=== PATIENT | female | born 1935 | race American Indian/Alaskan Native ===

== ENCOUNTER 2016-07-13 16:45 | Emergency (ER) | payer MEDICARE ==
[2016-07-13 16:57] VITALS: BMI 24.0
[2016-07-13 16:58] VITALS: RESP 20
--- NOTE | 2016-07-13 18:00 | C.PDOC ---
History Of Present Illness 80 y/o female with pain and swelling to right finger x 5 days, getting worse. pt sent to ed by pmd for further evaluation, no fever or chills. pt has hx of gout. Time Seen by Provider: 07/13/16 17:47 Chief Complaint (Nursing): Abnormal Skin Integrity History Per: Patient, Family History/Exam Limitations: no limitations Onset/Duration Of Symptoms: Days (5) Current Symptoms Are (Timing): Worse Location Of Injury: Right: Hand (4th finger) Past Medical History Reviewed: Historical Data, Nursing Documentation, Vital Signs Vital Signs: Last Vital Signs Temp 97.4 F L 07/13/16 16:58 Pulse 61 07/13/16 16:58 Resp 20 07/13/16 16:58 BP 136/65 07/13/16 16:58 Pulse Ox 99 07/13/16 19:53 - Medical History PMH: Arthritis Other PMH: gout Family History: States: Unknown Family Hx - Social History Hx Tobacco Use: No Hx Alcohol Use: No Hx Substance Use: No - Immunization History Hx Tetanus Toxoid Vaccination: No Hx Influenza Vaccination: No Hx Pneumococcal Vaccination: No Review Of Systems Constitutional: Negative for: Fever, Chills Cardiovascular: Negative for: Chest Pain Musculoskeletal: Positive for: Hand Pain Skin: Negative for: Rash Neurological: Negative for: Weakness, Numbness Physical Exam - Physical Exam Appears: Non-toxic, No Acute Distress Skin: Warm, Dry Head: Atraumatic, Normacephalic Oral Mucosa: Dry Chest: Symmetrical, No Deformity, No Tenderness Cardiovascular: Rhythm Regular, No Murmur Gastrointestinal/Abdominal: Soft, No Tenderness Extremity: Pedal Edema, Other (right ring finger with swelling and tenderness to distal phalanx, white/beige flucutant area proximal to nail and to medial finger. decreased rom. ) Neurological/Psych: Oriented x3, Normal Speech, Normal Cognition ED Course And Treatment - Laboratory Results Result Diagrams: 07/13/16 18:32 07/13/16 18:32 O2 Sat by Pulse Oximetry: 99 Medical Decision Making Medical Decision Making: discussed with Dr Bhandari; suggests admission for iv antibiotics pt adamantly refuses admission, thought iv antibiotics recommended, as well as iv hydration (bun 64/cr 1); discussed with patient at length, with daughter presents; will d/c patient home with po antibiotics. pt will leave [facility]. pt understands risks and consequences of leaving [facility] including and permanent disability. 750 pm message left for PMD to discuss patient and recommeded outpatient referrals needed. AMA The patient declines admission to the hospital and wishes to leave the Emergency Department. This action is against my medical advice to the patient and the decision was made with informed refusal. The patient was told that admission is necessary and a full explanation of the rationale was given. The risks of leaving were explained to the patient and daughter, and include, but are not limited to, worsening of known or currently unknown conditions, permanent disability and from undiagnosed or untreated conditions. The patient has the capacity to make this informed decision and understands the clinical situation and my explanation of the risks of leaving. The patient voluntarily accepts these risks and a signed AMA form documenting our conversation was obtained. The patient was given the opportunity to ask questions and reconsider. The patient was encouraged to return to the Emergency Department at any time for further care. Disposition - Disposition Referrals: Bry Gilbert MD, PhD [Staff Provider] - Disposition: AGAINST MEDICAL ADVICE Disposition Time: 19:50 Condition: STABLE Additional Instructions: Follow up with your primary care doctor tomorrow. Take antibiotics as prescribed. Tylenol for pain. Recommend referral to sleep tech and to infectious disease specialist. Drink increased fluids. You are dehydrated. Return to ER for any worse symptms. Prescriptions: Amoxicillin/Clavulanate [Augmentin 875 MG-125 MG] 1 tab PO BID #20 tab Forms: General Discharge Instructions - Clinical Impression Clinical Impression: Dehydration, Finger infection
[2016-07-13 18:35] LABS: BASO % 0.3 % (0.0-2.0); EOS % 0.1 % (0.0-4.0); HEMATOCRIT 38.5 % (34.0-47.0); LYMPH # 1.3 K/uL (1.0-4.3); LYMPH % 17.4 % (20.0-40.0); MEAN CELL VOLUME 82.7 fL (81.0-99.0); MEAN CORPUSCULAR HEMOGLOBIN 26.6 pg (27.0-31.0); MEAN CORPUSCULAR HGB CONC 32.2 g/dL (33.0-37.0); MEAN PLATELET VOLUME 10.4 fL (7.2-11.7); MONO # 0.4 K/uL (0.0-0.8); MONO % 4.8 % (0.0-10.0); RED CELL DISTRIBUTION WIDTH 17.9 % (11.5-14.5); WHITE BLOOD COUNT 7.7 K/uL (4.8-10.8)
[2016-07-13 18:47] LABS: ALB/GLOB RATIO 0.9 (1.0-2.1); BILIRUBIN,TOTAL 0.6 mg/dL (0.2-1.3); TOTAL PROTEIN 8.2 g/dL (6.3-8.3); URIC ACID 10.3 mg/dL (2.2-7.5)
[2016-07-13 18:48] LABS: CALCIUM 9.4 mg/dl (8.6-10.4)
[2016-07-13] MEDS ORDERED: Amoxicillin-Clav 875-125 mg Tab PO STA (19:48)
[2016-07-13 19:55] VITALS: BP 158/52; PULSE 56; TEMP 97.7
[2016-07-13 19:58] VITALS: O2SAT 99
[2016-07-13] MEDS ORDERED: Amoxicillin-Clav 875-125 mg Tab PO ONE (19:58)
--- NOTE | 2016-07-14 14:03 | RAD ---
PROCEDURE: Right Hand Radiographs. HISTORY: swelling to finger COMPARISON: None. FINDINGS: BONES: Normal. No fracture. JOINTS: The severe destructive changes of the 4th distal interphalangeal joint with subchondral erosions and joint space narrowing with severe soft tissue swelling. SOFT TISSUES: Normal. OTHER FINDINGS: None. IMPRESSION: The severe destructive changes of the 4th distal interphalangeal joint with subchondral erosions and joint space narrowing with severe soft tissue swelling.
== END 2016-07-13 20:06 | disposition left against medical advice (07) ==
LOC: C.ER 16:45
DX: L08.9 Local infection of the skin and subcutaneous tissue, unspecified (principal); E86.0 Dehydration